=== PATIENT | female | born 1940 | race Caucasian/White ===

== ENCOUNTER 2018-05-20 14:08 | Outpatient (CLI) | payer MEDICARE ==
--- NOTE | 2018-05-20 15:55 | RAD ---
TWO VIEWS RIGHT HIP: Comparison: None. History: Fall on right hip five days ago with right hip pain. FINDINGS: Two views of the right hip shows no evidence of acute fracture or dislocation. No degenerative change s are seen. IMPRESSION: No evidence of acute osseous abnormality. POS: [facility]
== END 2018-05-20 14:09 | disposition home or self-care (01) ==
LOC: NAV RAD 14:08
PROVIDERS: ATTEND Internal Medicine
DX: M25.551 Pain in right hip (principal)

== ENCOUNTER 2019-03-31 16:21 | Inpatient (IN) | payer MEDICARE ==
[2019-03-31 16:34] VITALS: BMI 25.0
[2019-03-31] MEDS ORDERED: Bisacodyl 5 MG TAB PO PRN (18:13)
[2019-03-31] MEDS ORDERED: Ondansetron ODT 4 MG TAB PO PRN (18:13)
[2019-03-31] MEDS ORDERED: Sodium Chloride 0.9% 30 ML ONE (18:58)
[2019-03-31] MEDS ORDERED: cefTRIAXone\\ROCEPHIN 1 GM in Sodium Chloride 0.9% 100 ML IVPB SCH (19:00)
[2019-03-31] MEDS: Sodium Chloride 0.9% 1,000 ML IV SCH (19:24)
[2019-03-31 19:58] LABS: #Basophils 0.1 thou/uL (0.0-0.2); #Eosinphils 0.6 thou/uL (0.0-0.7); #Lymphocytes 1.3 thou/uL (1.20-3.40); #Monocytes 1.1 thou/uL (0.11-0.59); #Neutrophils 7.6 thou/uL (1.40-6.50); %Basophils 1.1 % (0.0-1.0); %Eosinophils 5.9 % (0.0-10.0); %Lymphocytes 11.6 % (21.0-51.0); %Monocytes 10.5 % (0.0-10.0); %Neutrophils 70.8 % (42.0-75.0); Hemoglobin 10.5 g/dL (12.0-16.0); Mean Corpuscular HGB CONC 32.5 g/dL (32.0-36.0); Mean Corpuscular Hemoglobin 28.8 pg (27.0-31.0); Mean Corpuscular Volume 88.6 fL (78.0-98.0); Mean Platelet Volume 7.2 fL (7.4-10.4); Platelet Count 202 thou/uL (130-400); RBC Distribution Width 13.8 % (11.5-14.5); Red Blood Cell (RBC) Count 3.64 mill/uL (4.20-5.40); White Blood Cell (WBC) Count 10.8 thou/uL (4.8-10.8)
[2019-03-31 20:06] LABS: Lactic Acid 1.8 mmol/L (0.5-2.2)
[2019-03-31 20:11] LABS: ALT (SGPT) 22 U/L (8-55); AST (SGOT) 33 U/L (5-34); Albumin 3.7 g/dL (3.4-4.8); Alkaline Phosphatase 79 U/L (40-150); Anion Gap 15 mmol/L (10-20); BUN (Urea Nitrogen) 19 mg/dL (9.8-20.1); Bilirubin, Total 0.4 mg/dL (0.2-1.2); Calc. Creatinine Clearance 47 mL/min (70-130); Calcium 9.3 mg/dL (7.8-10.44); Carbon Dioxide 26 mmol/L (23-31); Chloride 98 mmol/L (98-107); Estimated GFR-MDRD 54; Globulin 2.3 g/dL (2.4-3.5); Glucose 120 mg/dL (83-110); Sodium 135 mmol/L (136-145)
[2019-03-31] MEDS: DULoxetine 30 MG CAP PO SCH (20:57)
[2019-03-31] MEDS: Famotidine 20 MG TAB PO SCH (20:58)
[2019-03-31] MEDS: Pregabalin 75 MG CAP PO SCH (20:58)
[2019-03-31] MEDS: Hydroxychloroquine Sulfate 200 MG TAB PO SCH (20:58)
[2019-03-31] MEDS ORDERED: Methotrexate Sodium 2.5 MG TAB PO SCH (21:00)
[2019-04-01] MEDS: Acetaminophen 325 MG TAB PO PRN ×2 (05:58→20:30)
[2019-04-01] MEDS: Levothyroxine Sodium 75 MCG TAB PO SCH (05:58)
[2019-04-01] MEDS: Sodium Chloride 0.9% 1,000 ML IV SCH (09:19)
[2019-04-01] MEDS: DULoxetine 30 MG CAP PO SCH ×2 (09:21→20:28)
[2019-04-01] MEDS: Pregabalin 75 MG CAP PO SCH ×2 (09:21→20:29)
[2019-04-01] MEDS: Famotidine 20 MG TAB PO SCH ×2 (09:22→20:28)
[2019-04-01] MEDS: Lisinopril 20 MG TAB PO SCH (09:22)
[2019-04-01] MEDS: Amlodipine 5 MG TAB PO SCH (09:22)
[2019-04-01] MEDS: Amitriptyline HCl 25 MG TAB PO SCH (09:22)
[2019-04-01] MEDS: Hydroxychloroquine Sulfate 200 MG TAB PO SCH ×2 (09:22→20:29)
[2019-04-01] MEDS: MEMANTINE HCL 7 MG PO SCH (09:24)
[2019-04-01] MEDS: Liothyronine Sodium 5 MCG TAB PO SCH (09:24)
[2019-04-01] MEDS: (Vitamin E [Vitamin E] 100 UNIT) PO SCH (09:25)
[2019-04-01] MEDS: CeleCOXIB 100 MG CAP PO SCH (09:28)
[2019-04-01] MEDS: Sulfameth/Trimethoprim DS 800-160mg TAB PO SCH (20:30)
[2019-04-01] MEDS: Senokot S 8.6-50 MG TAB PO PRN (20:30)
[2019-04-02] MEDS: Levothyroxine Sodium 75 MCG TAB PO SCH (05:51)
--- NOTE | 2019-04-02 07:29 | PRG ---
DATE OF SERVICE: 04/01/2019 SUBJECTIVE: The patient is a 79-year-old white female with history of E. coli urinary tract infection and severe weakness and mild metabolic encephalopathy and confusion, who has been admitted to the hospital for IV fluids and antibiotics. She is eating much better. Her vital signs stabilized and she is cooperating with therapy. OBJECTIVE: VITAL SIGNS: Today show her to have a temperature of 98.8, pulse 89, respirations 18, O2 sats 92% on room air, and blood pressure is 140/63. LUNGS: Clear at this time. CARDIAC: Shows regular rhythm. LABORATORY DATA: On admission had showed a white count of 10,800, hematocrit 32, and hemoglobin 10. Sodium 135, potassium 4.0, chloride 98, bicarb 26, BUN 19, creatinine 1.0, glucose 120, and lactate of 1.8. Urine culture as mentioned above shows E. coli, which is sensitive to the Bactrim she was on previously and she appears to be sensitive also to the Rocephin she is on now and improving daily. She is working with Physical Therapy daily. ASSESSMENT: 1. Resolving Escherichia coli urinary tract infection. 2. Resolving metabolic encephalopathy. 3. Persistent severe weakness, but improving with therapy. 4. Rheumatoid arthritis, stable on methotrexate. PLAN: Discontinue IV fluids and IV Rocephin. Start on Bactrim DS twice daily. Facilitate transfer to rehab hospital for continued PT/OT. Job ID: [id number]
[2019-04-02] MEDS: Hydroxychloroquine Sulfate 200 MG TAB PO SCH (08:34)
[2019-04-02] MEDS: CeleCOXIB 100 MG CAP PO SCH (08:35)
[2019-04-02] MEDS: Pregabalin 75 MG CAP PO SCH (08:35)
[2019-04-02] MEDS: DULoxetine 30 MG CAP PO SCH (08:35)
[2019-04-02] MEDS: Amitriptyline HCl 25 MG TAB PO SCH (08:35)
[2019-04-02] MEDS: Famotidine 20 MG TAB PO SCH (08:35)
[2019-04-02] MEDS: Amlodipine 5 MG TAB PO SCH (08:36)
[2019-04-02] MEDS: Lisinopril 20 MG TAB PO SCH (08:36)
[2019-04-02] MEDS: Sulfameth/Trimethoprim DS 800-160mg TAB PO SCH (08:36)
[2019-04-02] MEDS: MEMANTINE HCL 7 MG PO SCH (08:37)
[2019-04-02] MEDS ORDERED: Liothyronine Sodium 5 MCG TAB PO SCH (11:30)
[2019-04-02] MEDS: Liothyronine Sodium 5 MCG TAB PO SCH (11:52)
[2019-04-02] MEDS: (Vitamin E [Vitamin E] 100 UNIT) PO SCH (11:53)
[2019-04-02 16:52] VITALS: BP 129/59; TEMP 98.8
[2019-04-02] MEDS: Senokot S 8.6-50 MG TAB PO PRN (17:00)
[2019-04-03] MEDS ORDERED: Liothyronine Sodium 5 MCG TAB PO SCH (09:00)
== END 2019-04-02 18:20 | DRG 689 ==
LOC: NAV ACUTE 16:21
PROVIDERS: ADMIT Internal Medicine; ATTEND Internal Medicine
DX: N39.0 Urinary tract infection, site not specified (principal); G93.41 Metabolic encephalopathy; B96.20 Unspecified Escherichia coli [E. coli] as the cause of diseases classified elsewhere; M06.9 Rheumatoid arthritis, unspecified; R53.1 Weakness
CPT/HCPCS: 36415; 80053; 83605; 85025; J0696; J3490; J7050; J8610